=== PATIENT | male | born 1970 | race Caucasian/White ===

== ENCOUNTER 2019-05-28 13:20 | Emergency (ER) | payer SELFPAY ==
[2019-05-28] MEDS ORDERED: Acetaminophen 500 MG TAB ONE (14:15)
[2019-05-28] MEDS ORDERED: traMADol HCl 50 MG TAB ONE (15:05)
[2019-05-28] MEDS ORDERED: Morphine 4 MG/ML VIAL ONE (15:06)
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
== END 2019-05-28 16:41 | disposition home or self-care (01) ==
LOC: ERS 13:20
DX: S13.9XXA Sprain of joints and ligaments of unspecified parts of neck, initial encounter (principal); V43.62XA Car passenger injured in collision with other type car in traffic accident, initial encounter
CPT/HCPCS: 72125; 96372; J2270